=== PATIENT | male | born 1955 | race Caucasian/White ===

== ENCOUNTER 2016-11-13 10:31 | Emergency (ER) | payer SELFPAY ==
[~2016-11-13] VITALS: Ht 182.9 cm; Wt 92.0 kg
[~2016-11-13 10:31] MED LIST: LORT7.5T3 PO; Z.0.NO CURRENT MEDS
[2016-11-13 10:51] VITALS: BP 145/90; PULSE 91; RESP 14; TEMP 98.5; O2SAT 93
[2016-11-13] MEDS ORDERED: LOVA40TA PO (10:59)
[2016-11-13] MEDS ORDERED: LISI30TA4 PO (10:59)
--- NOTE | 2016-11-13 11:11 | PD ---
HPI Chief Complaint: Skin Problem Time Seen by Provider: 11:00 Travel History International Travel<30 days: No Contact w/Intl Traveler<30days: No Traveled to known affect area: No History of Present Illness HPI 61-year-old male presents to the ED for evaluation of 6 day history of blistering rash of the forehead. Patient states it started in his right-sided hairline. He endorses burning pain accompanying the rash and dull headaches. He sought treatment today because he woke up this morning with his eyes swollen. He denies fevers, chills, vision changes, dizziness,ear pain, throat pain, difficulties swallowing, breathing difficulties, nausea, vomiting. Unsure of the date of his last tetanus immunization. Denies shingles vaccine. PFSH Past Medical History Headaches: No Neurologic: No Reproductive: No Seizures: No Past Surgical History Abdominal Surgery: No Arteriovenous Shunt: No Genitourinary Surgery: No Joint Replacement: No Pacemaker: No Thoracic Surgery: No Social History Alcohol Use: Yes (1 DRINK PER DAY) Tobacco Use: Yes (1 PPD) Allergies-Medications (Allergen,Severity, Reaction): Coded Allergies: No Known Allergies (Verified Allergy, Severe, 11/15/07) Reported Meds & Prescriptions Reported Meds & Active Scripts Active Ibuprofen 800 Mg Tab 800 Mg PO Q8H PRN Acyclovir 800 Mg Tab 800 Mg PO 5 TIMES A DAY 7 Days Reported Lovastatin 40 Mg Tab Unknown Dose PO DAILY Lisinopril 30 Mg Tab 30 Mg PO DAILY Review of Systems Except as stated in HPI: all other systems reviewed are Neg Physical Exam Narrative GENERAL: Well-nourished, well-developed white male in no acute distress. SKIN: Warm and dry. There is a vesicular rash in the right V1 distribution including the right upper eyelid. There is edematous erythema surrounding a few healing crusts in the same distribution. The tip of the nose is spared. HEAD: Normocephalic. Atraumatic. EYES: No scleral icterus. No injection or drainage. PERRLA. EOMI. FLUORESCEIN EXAM: No lesions seen. ENT: Pearly cabrera tympanic membranes bilaterally. Nasal mucosa is moist. Oropharynx without erythema, edema or exudate. NECK: Supple, trachea midline. No JVD or lymphadenopathy. CARDIOVASCULAR: Regular rate and rhythm without murmurs, gallops, or rubs. 2+ DP and radial pulses bilaterally. RESPIRATORY: Breath sounds clear and equal bilaterally. No accessory muscle use. GASTROINTESTINAL: Abdomen soft, non-tender, nondistended. + Bowel sounds MUSCULOSKELETAL: No cyanosis, or edema. Full, active range of motion. Strength 5/5. Neurovascularly intact. BACK: Nontender without obvious deformity. No CVA tenderness. Data Data Last Documented VS Vital Signs Date Time Temp Pulse Resp B/P Pulse Ox O2 Delivery O2 Flow Rate FiO2 11/13/16 10:51 98.5 91 14 145/90 93 Orders Ibuprofen (Motrin) (11/13/16 11:15) Tetanus/Diphtheria Tox Adult (Tetanus/Di (11/13/16 11:15) MDM Medical Decision Making Medical Screen Exam Complete: Yes Emergency Medical Condition: Yes Differential Diagnosis Herpes zoster versus cellulitis versus wound infection versus other Narrative Course 61-year-old male presents to the ED for evaluation of 6 day history of blistering rash of the forehead. Patient states it started in his right-sided hairline. He endorses burning pain accompanying the rash and dull headaches. He sought treatment today because he woke up this morning with his eyes swollen. He denies fevers, chills, vision changes, dizziness,ear pain, throat pain, difficulties swallowing, breathing difficulties, nausea, vomiting. Unsure of the date of his last tetanus immunization. Denies shingles vaccine. Vitals reviewed. Physical exam reveals a vesicular rash in the right-sided forehead, V1 distribution. This does include the upper eyelid but spares the tip of the nose. Fluorescein staining of the eye reveals no dendritic lesions. There is also warm, tender erythema surrounding a few small healing crusts which I suspect is a secondary infection. The patient was prescribed acyclovir 5 times a day 7 days, Bactrim DS twice a day 7 days, he had a milligram ibuprofen 3 times a day when necessary pain. He is instructed to avoid touching the rash, take all medications as prescribed, stay out of the sun, follow up with his primary care provider. He indicated understanding of the instructions and is amenable to plan of care. He stable and discharged home. Diagnosis Primary Impression: Herpes zoster Qualified Code: B02.8 - Herpes zoster with other complication Additional Impressions: Herpes zoster conjunctivitis of right eye Cellulitis of face Referrals: Primary Care Physician Patient Instructions: Cellulitis (ED), General Instructions, Shingles (ED) Additional Instructions: Rest, hydrate. Touch the rash as little as possible. Always wash your hands before and after touching the rash. You may bathe normally. Take the antibiotics and acyclovir as they are prescribed, even if your symptoms resolve. 800 mg ibuprofen up to 3 times a day as needed for pain. Follow-up with your primary care provider this week. Return to the ED for any urgent or emergent medical condition. Med/Other Pt SpecificInfo: Prescription(s) given Scripts Sulfamethoxazole-Trimethoprim (Bactrim DS)800-160 Mg Tab1 Tab PO BID #14 TAB Ref 0 Prov:Mey Lam DO 11/13/16 Ibuprofen 800 Mg [id number] Mg PO Q8H PRN (Pain/Inflammation) #20 TAB Ref 0 Prov:Mey Lam DO 11/13/16 Acyclovir 800 Mg [id number] Mg PO 5 TIMES A DAY 7 Days Ref 0 Prov:Mey Lam DO 11/13/16 Disposition: 01 DISCHARGE HOME Condition: Stable Tran [place] Nov 13, 2016 11:11
[2016-11-13] MEDS ORDERED: IBUPROFEN 800 MG TAB PO ONE (11:15)
[2016-11-13] MEDS ORDERED: TETANUS/DIPHTHERIA TOXOID ADULT 0.5 ML VIAL IM ONE (11:15)
[2016-11-13] MEDS ORDERED: BACT800T5 PO (11:23)
[2016-11-13] MEDS ORDERED: ACYC800T PO (11:23)
[2016-11-13] MEDS ORDERED: IBUP800T23 PO (11:23)
[2016-11-14] MEDS ORDERED: GABA300C5 PO (20:39)
[2016-11-14] MEDS ORDERED: NORC5TAB PO (20:39)
== END 2016-11-13 11:38 | disposition home or self-care (01) ==
LOC: PHEFT 10:31
DX: B02.8 Zoster with other complications (principal); L03.211 Cellulitis of face; B02.31 Zoster conjunctivitis; Z23 Encounter for immunization
CPT/HCPCS: 90471; 90714

== ENCOUNTER 2016-11-14 18:49 | Emergency (ER) | payer SELFPAY ==
[~2016-11-14 18:49] MED LIST changes: +ACYC800T PO; +BACT800T5 PO; +IBUP800T23 PO; +LISI30TA4 PO; -LORT7.5T3 PO; +LOVA40TA PO; -Z.0.NO CURRENT MEDS
[2016-11-14 19:11] VITALS: BP 165/91; PULSE 84; RESP 20; TEMP 99.1; O2SAT 94
[2016-11-14] MEDS ORDERED: GABAPENTIN 300 MG CAP PO ONE (20:30)
[2016-11-14] MEDS ORDERED: ACETAMINOPHEN/HYDROcodone 325 MG/5 MG TAB PO ONE (20:30)
[2016-11-14 20:34] VITALS: BP 189/101; PULSE 78; RESP 18; O2SAT 97
[2016-11-14] MEDS ORDERED: NORC5TAB PO (20:39)
[2016-11-14] MEDS ORDERED: GABA300C5 PO (20:39)
--- NOTE | 2016-11-14 20:39 | PD ---
HPI Chief Complaint: Skin Problem Time Seen by Provider: 20:19 Travel History International Travel<30 days: No Contact w/Intl Traveler<30days: No Traveled to known affect area: No History of Present Illness HPI 61-year-old male complains of increasing pain and swelling on the forehead and around the right eye. Patient has history of shingles. Patient states that he started having a rash on the forehead and scalp about a week ago. Patient was seen in emergency room yesterday and was diagnosed with shingles. Right eye examination including fluorescein stain of the right eye showed no uptake on the right cornea. Patient was discharged home with prescription for Bactrim DS , ibuprofen and acyclovir. Patient started taking the medication since yesterday. Patient stated he has increasing pain and swelling on the forehead around the right eye today. Patient denies any fever chills. Patient denies any visual change. Patient denies any tearing from the right eye. Patient denies any redness from the right eye. PFSH Past Medical History High Cholesterol: Yes Headaches: No Hypertension: Yes Neurologic: No Reproductive: No Seizures: No Tetanus Vaccination: < 5 Years Influenza Vaccination: No Past Surgical History Surgical History: No Previous Surgery Abdominal Surgery: No Arteriovenous Shunt: No Genitourinary Surgery: No Joint Replacement: No Neurologic Surgery: No Pacemaker: No Thoracic Surgery: No Other Surgery: Yes Social History Alcohol Use: Yes (COUPLE DRINKS PER DAY) Tobacco Use: Yes (1/2 PPD) Substance Use: No Allergies-Medications (Allergen,Severity, Reaction): Coded Allergies: No Known Allergies (Verified , 11/14/16) Reported Meds & Prescriptions Reported Meds & Active Scripts Active Bactrim DS (Sulfamethoxazole-Trimethoprim) 800-160 Mg Tab 1 Tab PO BID Ibuprofen 800 Mg Tab 800 Mg PO Q8H PRN Acyclovir 800 Mg Tab 800 Mg PO 5 TIMES A DAY 7 Days Reported Lovastatin 40 Mg Tab Unknown Dose PO DAILY Lisinopril 30 Mg Tab 30 Mg PO DAILY Review of Systems General / Constitutional: No: Fever Eyes: No: Visual changes HENT: No: Headaches Cardiovascular: No: Chest Pain or Discomfort Respiratory: No: Shortness of Breath Gastrointestinal: No: Abdominal Pain Genitourinary: No: Dysuria Musculoskeletal: No: Pain Skin: No Rash Neurologic: No: Weakness Psychiatric: No: Depression Endocrine: No: Polydipsia Hematologic/Lymphatic: No: Easy Bruising Physical Exam Narrative GENERAL: Well-nourished, well-developed patient. SKIN: Warm and dry. HEAD: Normocephalic. Patient has blistering rash on the right side of forehead the right-sided scalp and some scabbing noted. Mild redness on the right scalp and right forehead however nontender on palpation. No induration no discharge. EYES: No scleral icterus. No injection or drainage. Patient has periorbital edema without tenderness or heat around the right eye. NECK: Supple, trachea midline. No JVD or lymphadenopathy. CARDIOVASCULAR: Regular rate and rhythm without murmurs, gallops, or rubs. RESPIRATORY: Breath sounds equal bilaterally. No accessory muscle use. GASTROINTESTINAL: Abdomen soft, non-tender, nondistended. MUSCULOSKELETAL: No cyanosis, or edema. BACK: Nontender without obvious deformity. No CVA tenderness. Data Data Last Documented VS Vital Signs Date Time Temp Pulse Resp B/P Pulse Ox O2 Delivery O2 Flow Rate FiO2 11/14/16 19:11 99.1 84 20 165/91 94 Orders Gabapentin (Neurontin) (11/14/16 20:30) Acetamin-Hydrocod 325-5 Mg ([place] 5-325 (11/14/16 20:30) MDM Medical Decision Making Medical Screen Exam Complete: Yes Emergency Medical Condition: Yes Medical Record Reviewed: Yes Differential Diagnosis Differential diagnosis including shingles, cellulitis, abscess. Narrative Course 17-year-old male with history of shingles, increasing swelling and pain on the right side the scalp, forehead, around the right eye. Patient's on acyclovir, Bactrim DS and Motrin. Gabapentin 300 mg by mouth given. Diagnosis Primary Impression: Shingles Qualified Code: B02.9 - Herpes zoster without complication Patient Instructions: General Instructions Additional Instructions: Continue with acyclovir and Bactrim DS. Prescription given for Lortab and gabapentin for pain. Follow-up with personal physician. Return if worse. Return immediately if right eye redness or tearing. Med/Other Pt SpecificInfo: Prescription(s) given Scripts Hydrocodone-Acetaminophen ([place])5-325 mg Tab1 Tab PO Q6H PRN (PAIN) #30 TAB Ref 0 Prov:Hema Amor MD 11/14/16 Gabapentin 300 Mg [id number] Mg PO TID #60 CAP Ref 0 Prov:Hema Amor MD 11/14/16 Disposition: 01 DISCHARGE HOME Condition: Stable Hema Amor MD Nov 14, 2016 20:39
[2016-11-14 21:06] VITALS: BP 163/87
== END 2016-11-14 21:06 | disposition home or self-care (01) ==
LOC: PHED 18:49
DX: F10.10 Alcohol abuse, uncomplicated (principal); E78.00 Pure hypercholesterolemia, unspecified; I10 Essential (primary) hypertension; F17.210 Nicotine dependence, cigarettes, uncomplicated; B02.9 Zoster without complications
CPT/HCPCS: 99283

== ENCOUNTER 2017-04-19 09:56 | Emergency (ER) | payer OTHER ==
[~2017-04-19] VITALS: Ht 182.9 cm; Wt 98.0 kg
[2017-04-19 09:56] VITALS: BP 127/71; PULSE 91; RESP 16; TEMP 98.1; O2SAT 93
[~2017-04-19 09:56] MED LIST changes: +GABA300C5 PO; +NORC5TAB PO
[2017-04-19] MEDS ORDERED: SODIUM CHLOR 0.9% 1000 ML INJ 1,000 ML IV ONE (10:30)
[2017-04-19] MEDS ORDERED: ONDANSETRON HCL 4 MG/2 ML VIAL IV ONE (10:30)
[2017-04-19] MEDS ORDERED: HYDROmorphone HCL PF 1 MG/ML VIAL IVS ONE (10:30)
[2017-04-19 11:08] VITALS: BP 129/66; PULSE 84; RESP 20; O2SAT 93
--- NOTE | 2017-04-19 11:12 | RADRPT ---
EXAM DATE/TIME: 04/19/2017 10:31 [facility] COMPARISON: No previous studies available for comparison. INDICATIONS : Right shoulder pain, fall down stairs. MEDICAL HISTORY : None. SURGICAL HISTORY : None. ENCOUNTER: Initial ACUITY: 1 day PAIN SCORE: 10/10 LOCATION: Right proximal shoulder FINDINGS: No fracture is seen in the shoulder region. The humeral head is somewhat high riding. There is joint space narrowing and hypertrophic change at the acromioclavicular joint. The glenohumeral joint is ali gned. Minimal spurring is seen at the inferior medial humeral head. There are acute fractures of the posterior right seventh and eighth ribs. CONCLUSION: 1. Right seventh and eighth rib fractures.. 2. Degenerative change at the acromioclavicular joint and to lesser degree glenohumeral joints. There is a somewhat high riding humeral head which can be seen with rotator cuff abnormality. Edgar Mendez MD on April 19, 2017 at 11:05 Board Certified Radiologist. This report was verified electronically.
--- NOTE | 2017-04-19 11:47 | PD ---
HPI Chief Complaint: Fall Time Seen by Provider: 10:14 Travel History International Travel<30 days: No Contact w/Intl Traveler<30days: No Traveled to known affect area: No History of Present Illness HPI Is a 61-year-old man, otherwise healthy, presents emergency department for fall from about 20 feet down the stairs. He reportedly was standing on a half wall next to a set of stairs painting when he fell backwards onto the stairs and fell down the stairs. He has a laceration to the back of his head. He otherwise has been feeling generally well and healthy. 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 He complains of pain in his right shoulder, and some to his head. He is not on any blood thinners. Only medical history is hypertension. History Past Medical History Narrative Medical Hypertension Tetanus Vaccination: < 5 Years Influenza Vaccination: No Social History Alcohol Use: Yes (COUPLE DRINKS PER DAY) Tobacco Use: Yes (1 PPD) Allergies-Medications (Allergen,Severity, Reaction): Coded Allergies: No Known Allergies (Verified , 11/14/16) Reported Meds & Prescriptions Reported Meds & Active Scripts Active Reported Lovastatin 40 Mg Tab Unknown Dose PO DAILY Lisinopril 30 Mg Tab 30 Mg PO DAILY Review of Systems Except as stated in HPI: all other systems reviewed are Neg Physical Exam Narrative GENERAL: 61-year-old man, generally well-appearing, full spinal mobilization. SKIN: Focused skin assessment warm/dry. HEAD: Normocephalic. There is a several centimeter horizontal laceration the posterior occiput that is incompletely evaluated initially due to cervical collar and spinal mobilization. EYES: Pupils equal and round. No scleral icterus. No injection or drainage. ENT: No nasal bleeding or discharge. Mucous membranes pink and moist. NECK: Some midline tenderness. No step-offs or deformities. Cervical collar in place. CARDIOVASCULAR: Regular rate and rhythm. No murmur appreciated. RESPIRATORY: No accessory muscle use. Clear to auscultation. Breath sounds equal bilaterally. GASTROINTESTINAL: Abdomen soft, non-tender, nondistended. Hepatic and splenic margins not palpable. MUSCULOSKELETAL: No obvious deformities. Pain in the right shoulder and tenderness on the right chest wall. He also some tenderness along the mid and lower back in the midline. No obvious ecchymosis bruising or step-offs. No other extremity injuries. NEUROLOGICAL: Awake and alert. No obvious cranial nerve deficits. Motor grossly within normal limits. Normal speech. Data Data Last Documented VS Vital Signs Date Time Temp Pulse Resp B/P Pulse Ox O2 Delivery O2 Flow Rate FiO2 04/19/17 14:48 83 18 134/81 95 Room Air 04/19/17 09:[address] Brain W/O Iv Contrast(Rout) (04/19/17 ) Ct Cerv Spine W/O Contrast (04/19/17 ) Chest, Single Ap (04/19/17 ) Shoulder, Complete (>2vws) (04/19/17 ) Ct Thor Spine W/O Contrast (04/19/17 ) Ct Lumb Spine W/O Contrast (04/19/17 ) Ct Abd/Pel W Iv Contrast(Rout) (04/19/17 ) Sodium Chlor 0.9% 1000 Ml Inj (Ns 1000 M (04/19/17 10:30) Hydromorphone Pf Inj (Dilaudid Pf Inj) (04/19/17 10:30) Ondansetron Inj (Zofran Inj) (04/19/17 10:30) Ct Thorax/ Chest W Iv Contrast (04/19/17 ) Iohexol 350 Inj (Omnipaque 350 Inj) (04/19/17 13:55) Lidocai-Epi 1%-1:100,000 Inj (Xylocaine- (04/19/17 14:30) Morphine Inj (Morphine Inj) (04/19/17 14:45) Lidocaine 1% Inj (50 Ml) (Xylocaine 1% I (04/19/17 14:45) MDM Medical Decision Making Medical Screen Exam Complete: Yes Emergency Medical Condition: Yes Interpretation(s) Head CT: Negative C-spine CT: Negative. Chest CT: Mildly the fracture the inferior aspect of the right scapula with minimally displaced fracture of the right posterior sixth and seventh ribs with a small area of parenchymal contusion and the adjacent lung. No pneumothorax. T-spine CT CT abdomen and pelvis: Small area of probable contusion of the right lung base. 2 adrenal nodules. Degenerative changes of the lumbar spine. L-spine CT: Chest x-ray: No acute pulmonary infiltrate or pulmonary vascular congestion. Right shoulder x-ray: Right seventh and eighth rib fractures. Degenerative change at the before meals joint and to lesser extent the glenohumeral joint. Somewhat high riding humeral head which can be seen them rotator cuff abnormality. Differential Diagnosis Head injury, neck injury, shoulder injury, chest injury, other Narrative Course Medical decision-making 61-year-old presents emergent department for evaluation following a fall. He has a laceration back of his head. The fall was from a pretty sizable height down the stairs. He is right shoulder pain and some neck pain. With CT scans of his head neck chest and back. Reassess. FINAL: Patient has 2 rib fractures, scapular fracture, pulmonary contusion. I recommended observation overnight with the trauma team. Patient strongly desires to be discharged. I discussed with him the risks of inadequate pain control, oversedation with pain control, and the risk of pulmonary problems from pulmonary contusion or development of pneumonia. He understands these things. We'll give him some oral pain medication here. Make sure he tolerates x-rays comfortable enough. We'll send him home with a splint spirometer. Him in a sling. We'll recommend outpatient follow-up. Diagnosis Primary Impression: Rib fractures Additional Impression: Scapula fracture Additional Instructions: No work until cleared by your primary physician. Take Naprosyn and Lortab as prescribed as needed for pain. Take Shantell-Colace if you're taking Lortab. Wear sling sling for 2 weeks while your up on your feet except for while showering. Regarding the laceration to the back your head, do not get it wet at all for 24 hours. After 24 hours she can wash her hair normally with soap and water. Do not soak the wound. Do not go swimming. [place] should be removed in 7 days. He can follow up with her primary doctor or return to the emergency department. Regarding the rib fractures, take your pain medicine as prescribed. It's important that you ambulate, and encourage deep breathing to reduce the rate of pneumonia. Use incentive spirometer as directed, 4-5 times an hour, again to encourage deep breathing and reduce risk of pneumonia. Return to the emergency department for any worsening chest pain, trouble breathing, or any other new or worsening symptoms. Med/Other Pt SpecificInfo: Prescription(s) given Scripts Sennosides-Docusate Sodium (Shantell-Colace)8.6-50 Mg Tab1 Tab PO BID PRN ( Constipation) #30 TAB Ref 0 Prov:Viel,Carl C. MD 04/19/17 Naproxen (Naprosyn)500 Mg [id number] Mg PO BID PRN (PAIN SCALE 1 TO 10) #20 TAB Prov:Carl Jones MD 04/19/17 Oxycodone-Acetaminophen (Percocet)5-325 mg Tab1-2 Tab PO Q6H PRN (PAIN) #30 TAB Ref 0 Prov:Carl Jones MD 04/19/17 Disposition: 01 DISCHARGE HOME Condition: Stable Carl Jones MD Apr 19, 2017 11:47
--- NOTE | 2017-04-19 12:32 | RADRPT ---
EXAM DATE/TIME: 04/19/2017 10:34 [facility] COMPARISON: No previous studies available for comparison. INDICATIONS : Chest pain after fall. MEDICAL HISTORY : Hypercholesterolemia. Hypertension SURGICAL HISTORY : None. ENCOUNTER: Initial ACUITY: 1 day PAIN SCORE: 4/10 LOCATION: Right upper chest FINDINGS: The heart is mildly prominent. The pulmonary vascular pattern is normal. The lungs are clear. CONCLUSION: 1. Mild cardiomegaly. 2. No acute focal pulmonary infiltrate or pulmonary vascular congestion. Joe Coughlin MD on April 19, 2017 at 11:04 Board Certified Radiologist. This report was verified electronically.
--- NOTE | 2017-04-19 13:50 | RADRPT ---
EXAM DATE/TIME: 04/19/2017 13:31 [facility] COMPARISON: No previous studies available for comparison. INDICATIONS : Patient fell today. RADIATION DOSE: 66.44 CTDIvol (mGy) MEDICAL HISTORY : Hypertension. SURGICAL HISTORY : None. ENCOUNTER: Initial ACUITY: 1 day PAIN SCALE: 3/10 LOCATION: Bilateral cranial TECHNIQUE: Multiple contiguous axial images were obtained of the head. Using automated exposure control and adj ustment of the mA and/or kV according to patient size, radiation dose was kept as low as reasonably a chievable to obtain optimal diagnostic quality images. DICOM format image data is available electro nically for review and comparison. FINDINGS: CEREBRUM: The ventricles are normal for age. No evidence of midline shift, mass lesion, hemorrhage or acute in farction. No extra-axial fluid collections are seen. POSTERIOR FOSSA: The cerebellum and brainstem are intact. The 4th ventricle is midline. The cerebellopontine angle i s unremarkable. EXTRACRANIAL: The visualized portion of the orbits is intact. Mild mucosal thickening is noted involving the ethmoi d air cells bilaterally as well as the visualized portion of the right maxillary sinus. SKULL: The calvaria is intact. No evidence of skull fracture. CONCLUSION: 1. No acute intracranial abnormality. 2. Mild mucosal thickening within the bilateral ethmoid air cells and visualized portion of the right maxillary sinus. Joe Coughlin MD on April 19, 2017 at 13:47 Board Certified Radiologist. This report was verified electronically.
[2017-04-19] MEDS ORDERED: IOHEXOL 350 MG/ML 10 ML VIAL (for RAD DIAG) IV ONE (13:55)
--- NOTE | 2017-04-19 14:27 | RADRPT ---
EXAM DATE/TIME: 04/19/2017 13:47 [facility] COMPARISON: CT BRAIN W/O CONTRAST, April 19, 2017, 13:31. INDICATIONS : Patient fell from ladder IV CONTRAST: 97 cc Omnipaque 350 (iohexol) IV ; Cumulative dose for multiple exams. RADIATION DOSE: 15.08 CTDIvol (mGy) ; Combined studies - Abdomen/Pelvis MEDICAL HISTORY : Hypertension. SURGICAL HISTORY : None. ENCOUNTER: Initial ACUITY: 1 day PAIN SCALE: 8/10 LOCATION: Right shoulder TECHNIQUE: Volumetric scanning of the chest was performed. Using automated exposure control and adjustment of t he mA and/or kV according to patient size, radiation dose was kept as low as reasonably achievable to obtain optimal diagnostic quality images. DICOM format image data is available electronically for review and comparison. Follow-up recommendations for detected pulmonary nodules are based at a minimum on nodule size and pa tient risk factors according to Fleischner Society Guidelines. FINDINGS: Imaging through the pulmonary parenchyma demonstrates mild interstitial fibrotic changes and some par enchymal contusion at the right lung base. There is no pneumothorax. The heart is normal in size. There is atherosclerotic calcification of the coronary arteries. No romulo cardial effusion is seen. The aorta and great vessels are intact. The limited portions of upper abdomen visualized demonstrate a 1.7 cm adrenal nodule. Bone windowed imaging is provided. These demonstrate a mildly displaced fracture the inter aspect of the right scapula. There are mildly displaced fractures of the right posterior sixth and seventh ribs as well. The remainder the osseous structures are intact. CONCLUSION: 1. Mildly displaced fracture in for aspect of the right scapula with minimally displaced fractures of the right posterior sixth and seventh ribs. There is a small area of parenchymal contusion in the ad jacent lung. There is no pneumothorax. Gregory Hogan MD on April 19, 2017 at 14:21 Board Certified Radiologist. This report was verified electronically.
[2017-04-19] MEDS ORDERED: LIDOCAINE 1%/EPINEPHrine 1:100,000 SOLN 20 ML VIAL INFIL ONE (14:30)
--- NOTE | 2017-04-19 14:31 | RADRPT ---
EXAM DATE/TIME: 04/19/2017 13:47 [facility] COMPARISON: CT BRAIN W/O CONTRAST, April 19, 2017, 13:31. INDICATIONS : Abdomen pain from fall. IV CONTRAST: 97 cc Omnipaque 350 (iohexol) IV ; Cumulative dose for multiple exams. ORAL CONTRAST: No oral contrast ingested. RADIATION DOSE: 15.08 CTDIvol (mGy) ; Combined studies - Thorax/Abdomen/Pelvis MEDICAL HISTORY : Hypertension. SURGICAL HISTORY : None. ENCOUNTER: Initial ACUITY: 1 day PAIN SCALE: 3/10 LOCATION: Bilateral lower quadrant TECHNIQUE: Volumetric scanning of the abdomen and pelvis was performed. Using automated exposure control and ad justment of the mA and/or kV according to patient size, radiation dose was kept as low as reasonably achievable to obtain optimal diagnostic quality images. DICOM format image data is available electro nically for review and comparison. FINDINGS: There is parenchymal contusion in the right lung base. There no fractures of the right posterior sixt h and seventh ribs. The appearance of the liver, spleen, pancreas, right adrenal gland and kidneys is within normal limit s. The examination does demonstrate a 1.9 cm left adrenal nodule. There is a second 1.6 cm nodule mor e inferiorly in the left adrenal gland as well. These have an appearance suggesting they are benign a denoma however for definitive confirmation MRI imaging should be performed. There is no free fluid. The visualized loops of small and large bowel in the upper abdomen are unrema rkable. No free air is seen. There is no free fluid within the pelvis. No iliac or inguinal adenopathy is present. The visualized loops of small large bowel in the pelvis are unremarkable. Bone windowed imaging is provided. These demonstrate degenerative changes in the lumbar spine. The bertrand lynn's known right posterior rib fractures are again identified. CONCLUSION: 1. Small area of parenchymal contusion at the right lung base. This is discussed in detail above. 2. There are 2 adrenal nodules on the left both described above these probably represent adenoma day opal they're indeterminate in appearance by post contrast CT. 3. Degenerative changes of the lumbar spine. No acute fracture the lumbar spine or pelvis identified. Gregory Hogan MD on April 19, 2017 at 14:25 Board Certified Radiologist. This report was verified electronically.
--- NOTE | 2017-04-19 14:35 | RADRPT ---
EXAM DATE/TIME: 04/19/2017 13:31 [facility] COMPARISON: No previous studies available for comparison. INDICATIONS : Neck pain from fall. RADIATION DOSE: 21.19 CTDIvol (mGy) MEDICAL HISTORY : Hypertension. SURGICAL HISTORY : None. ENCOUNTER: Initial ACUITY: 1 day PAIN SCALE: 2/10 LOCATION: Bilateral neck region. TECHNIQUE: Volumetric scanning of the cervical spine was performed. Multiplanar reconstructions in the sagittal, coronal and oblique axial planes were performed. Using automated exposure control and adjustment o f the mA and/or kV according to patient size, radiation dose was kept as low as reasonably achievable to obtain optimal diagnostic quality images. DICOM format image data is available electronically f or review and comparison. FINDINGS: Diffuse cervical spondylosis is noted from C2 through C7. Scoliosis of the cervical spine is noted. The bony relationship and alignment between C1 and C2 is well maintained. There is no acute fractur e or prevertebral soft tissue swelling. No bony spinal canal stenosis is noted. CONCLUSION: 1. No acute fracture or prevertebral soft tissue swelling. 2. Diffuse cervical spondylosis and scoliosis of the cervical spine. Joe Coughlin MD on April 19, 2017 at 13:56 Board Certified Radiologist. This report was verified electronically.
[2017-04-19] MEDS ORDERED: MORPHINE SULFATE 4 MG/ML INJ IV PUSH ONE (14:45)
[2017-04-19] MEDS ORDERED: LIDOCAINE HCL 1% 50 ML VIAL ONE (14:45)
[2017-04-19 14:48] VITALS: BP_SYST 110; BP_SYST 134; BP_DIAS 81; BP_DIAS 85; PULSE 83; RESP 18; O2SAT 95
--- NOTE | 2017-04-19 14:55 | RADRPT ---
EXAM DATE/TIME: 04/19/2017 13:47 [facility] COMPARISON: CT CERVICAL SPINE W/O CONTRAST, April 19, 2017, 13:31. INDICATIONS : Low back pain from fall. RADIATION DOSE: CTDIvol (mGy) ; Reconstructed from previous data set, no dose MEDICAL HISTORY : Hypertension. SURGICAL HISTORY : None. ENCOUNTER: Initial ACUITY: 1 day PAIN SCALE: 5/10 LOCATION: Bilateral low back region. TECHNIQUE: Volumetric scanning of the lumbar spine was performed. Multiplanar reconstructions in the sagittal, coronal and oblique axial planes were performed. Using automated exposure control and adjustment of the mA and/or kV according to patient size, radiation dose was kept as low as reasonably achievable t o obtain optimal diagnostic quality images. DICOM format image data is available electronically for review and comparison. FINDINGS: Sagittal and coronal reformats demonstrate adequate alignment of the lumbar vertebral bodies. There a re scattered degenerative changes throughout the lumbar spine with anterior endplate osteophytes. No acute compression fracture is seen. T12-L1: The thecal sac has a normal diameter. No evidence of disc bulge or protrusion. The neural foramina are patent bilaterally. L1-L2: The thecal sac has a normal diameter. No evidence of disc bulge or protrusion. The neural foramina are patent bilaterally. L2-L3: There is a small broad-based disc bulge. The thecal space and foramina are adequate. L3-L4: There is a small broad-based disc bulge. The thecal space is adequate. The foramina are adequate. L4-L5: The thecal sac has a normal diameter. No evidence of disc bulge or protrusion. The neural foramina are patent bilaterally. There is moderate facet arthritis bilaterally. L5-S1: The thecal sac has a normal diameter. No evidence of disc bulge or protrusion. The neural foramina are patent bilaterally. There is mild facet arthritis on the right. CONCLUSION: 1. Scattered degenerative changes. No acute fracture of the lumbar spine identified. Gregory Hogan MD on April 19, 2017 at 14:49 Board Certified Radiologist. This report was verified electronically.
--- NOTE | 2017-04-19 14:57 | PD ---
Physical Exam Date Seen by Provider: Apr 19, 2017 Time Seen by Provider: 14:55 Narrative I was asked by Dr. Jones to repair laceration to the patient's occipital scalp. Please see his documentation for full history and physical. Data Data Last Documented VS Vital Signs Date Time Temp Pulse Resp B/P Pulse Ox O2 Delivery O2 Flow Rate FiO2 04/19/17 14:48 83 18 134/81 95 Room Air 04/19/17 09:[address] Brain W/O Iv Contrast(Rout) (04/19/17 ) Ct Cerv Spine W/O Contrast (04/19/17 ) Chest, Single Ap (04/19/17 ) Shoulder, Complete (>2vws) (04/19/17 ) Ct Thor Spine W/O Contrast (04/19/17 ) Ct Lumb Spine W/O Contrast (04/19/17 ) Ct Abd/Pel W Iv Contrast(Rout) (04/19/17 ) Sodium Chlor 0.9% 1000 Ml Inj (Ns 1000 M (04/19/17 10:30) Hydromorphone Pf Inj (Dilaudid Pf Inj) (04/19/17 10:30) Ondansetron Inj (Zofran Inj) (04/19/17 10:30) Ct Thorax/ Chest W Iv Contrast (04/19/17 ) Iohexol 350 Inj (Omnipaque 350 Inj) (04/19/17 13:55) Lidocai-Epi 1%-1:100,000 Inj (Xylocaine- (04/19/17 14:30) Morphine Inj (Morphine Inj) (04/19/17 14:45) Lidocaine 1% Inj (50 Ml) (Xylocaine 1% I (04/19/17 14:45) [facility] Supervised Visit with JARRETT: No Procedures Procedure Narrative LACERATION LOCATION: occipital scalp LENGTH: 5.5 cm NUMBER OF STITCHES/SELENA: 6 selena REPAIR: The area of the laceration was prepped with Betadine and sterilely draped. The laceration was infiltrated with 1% lidocaine. The wound was copiously irrigated and explored without evidence of foreign body, tendon injury or neurovascular injury. The wound was closed using selena. This was a single layer repair. A sterile dressing was applied. The patient was advised to keep the dressing clean and dry. Patient tolerated the procedure well. Margret Mace Apr 19, 2017 14:57
--- NOTE | 2017-04-19 14:57 | RADRPT ---
EXAM DATE/TIME: 04/19/2017 13:47 [facility] COMPARISON: CT CERVICAL SPINE W/O CONTRAST, April 19, 2017, 13:31. INDICATIONS : Mid back pain from fall. RADIATION DOSE: CTDIvol (mGy) ; Reconstructed from previous dataset, no dose MEDICAL HISTORY : Hypertension. SURGICAL HISTORY : None. ENCOUNTER: Initial ACUITY: 1 day PAIN SCALE: 4/10 LOCATION: Bilateral mid back TECHNIQUE: Volumetric scanning of the thoracic spine was performed. Multiplanar reconstructions in the sagittal , coronal and oblique axial planes were performed. Using automated exposure control and adjustment o f the mA and/or kV according to patient size, radiation dose was kept as low as reasonably achievable to obtain optimal diagnostic quality images. DICOM format image data is available electronically f or review and comparison. FINDINGS: Sagittal and coronal reformats of the thoracic spine are provided. There is anatomic alignment of the thoracic vertebral bodies. No acute compression fracture is evident. Axial imaging through the disc spaces is provided. These demonstrate scattered degenerative changes w hich are mild in severity. There is no significant neural foraminal stenosis or spinal stenosis ident ified. Note is made of some parenchymal contusion within the right lung base. CONCLUSION: 1. No acute fracture or thoracic spine identified. Gregory Hogan MD on April 19, 2017 at 14:53 Board Certified Radiologist. This report was verified electronically.
[2017-04-19] MEDS ORDERED: NAPROXEN 500 MG TAB PO ONE (15:30)
[2017-04-19] MEDS ORDERED: oxyCODONE/ACETAMINOPHEN 5 MG/325 MG TAB PO ONE (15:30)
[2017-04-19] MEDS ORDERED: PERI8.6T PO (15:33)
[2017-04-19] MEDS ORDERED: PERC5TAB12 PO (15:33)
[2017-04-19] MEDS ORDERED: NAPR500 PO (15:33)
== END 2017-04-19 16:47 | disposition home or self-care (01) ==
LOC: NEPC 09:56
DX: S01.01XA Laceration without foreign body of scalp, initial encounter (principal); S22.41XA Multiple fractures of ribs, right side, initial encounter for closed fracture; S42.101A Fracture of unspecified part of scapula, right shoulder, initial encounter for closed fracture; W17.89XA Other fall from one level to another, initial encounter
CPT/HCPCS: 12002; 70450; 71010; 71260; 72125; 72128; 72131; 73030; 74177; 94150; 96361; 96374; 99285; J1170; J2270; J2405; J7030; Q9967